=== PATIENT | female | born 1960 | race Caucasian/White ===

== ENCOUNTER → 2017-08-13 | Outpatient (CLI) | payer MEDICARE | LOC: COL.LAB 14:31 | DX: E03.9 Hypothyroidism, unspecified (principal); Z88.5 Allergy status to narcotic agent; Z88.8 Allergy status to other drugs, medicaments and biological substances ==

== ENCOUNTER → 2017-11-17 | Outpatient (CLI) | payer MEDICARE ==
[2017-11-17 17:47] LABS: URINE PROTEIN:CREAT RATIO 0.38 (0.00-0.14)
== END ==
LOC: COL.LAB 15:36
PROVIDERS: Family Medicine
DX: E11.9 Type 2 diabetes mellitus without complications (principal)

== ENCOUNTER → 2018-02-24 | Outpatient (CLI) | payer MEDICARE ==
[2018-02-24 16:29] LABS: BASO # 0.1 (0.0-0.2); BASO % 0.8 % (0.0-2.0); EOS # 0.3 (0.0-0.7); EOS % 2.9 % (0-4.0); GRAN # 7.3 (1.4-6.5); GRAN % 63.9 % (42.2-75.2); HEMATOCRIT 43.6 % (37.0-47.0); HEMOGLOBIN 14.2 g/dl (12.5-16.0); LYMPH # 2.8 (1.2-3.4); LYMPH % 24.5 % (20.0-51.0); MEAN CELL VOLUME 90 fl (80.0-100.0); MEAN CORPUSCULAR HEMOGLOBIN 29 pg (27.0-31.0); MEAN CORPUSCULAR HGB CONC 33 g/dl (33.0-37.0); MEAN PLATELET VOLUME 10.8 fl (7.4-10.4); MONO # 0.9 (0.1-0.6); MONO % 7.5 % (1.7-9.3); PLATELET COUNT 355 K/mm3 (130-400); RED BLOOD COUNT 4.84 M/mm3 (4.10-5.30); REDCELL DISTRIBUTION WIDTH-CV 13.3 % (11.5-14.5)
[2018-02-24 16:37] LABS: ALBUMIN 4.2 gm/dL (3.5-5.0); BILIRUBIN,TOTAL 0.5 mg/dL (0.0-1.0); CHOLESTEROL RISK RATIO 4.4; CREATININE, serum 0.62 mg/dL (0.52-1.25); POTASSIUM 3.8 mmol/L (3.4-5.0); TOTAL PROTEIN 7.7 gm/dL (6.4-8.2)
[2018-02-24 17:07] LABS: TSH w REFLEX 2.3 uIU/mL (0.465-4.680)
== END ==
LOC: COL.LAB 14:22
PROVIDERS: Family Medicine
DX: Z13.220 Encounter for screening for lipoid disorders (principal); R53.83 Other fatigue; I10 Essential (primary) hypertension

== ENCOUNTER 2019-07-15 10:29 | Day surgery (SDC) | payer MEDICARE, MEDICAID ==
[2019-07-15] VITALS (9 sets, daily range): BP systolic 130–158; BP diastolic 67–98; PULSE 63–116; TEMP 98
[~2019-07-15] VITALS: Ht 157.5 cm; Wt 120.0 kg
[2019-07-15] MEDS ORDERED: HYZAAR 25 MG-101 TAB PO (11:08)
[2019-07-15] MEDS ORDERED: LEVOXYL0.1 MG PO (11:08)
[2019-07-15] MEDS ORDERED: DITROPAN 5MG TAB5 MG PO (11:09)
[2019-07-15] MEDS ORDERED: NEURONTIN300 MG/CAP PO (11:10)
[2019-07-15] MEDS ORDERED: ALLEGRA 180MG180 MG PO (11:11)
[2019-07-15] MEDS ORDERED: LIPITOR20 MG PO (11:11)
[2019-07-15] MEDS ORDERED: PLETAL50 MG PO (11:12)
[2019-07-15] MEDS ORDERED: SYNJARDY 12.5-1 EACH PO (11:13)
[2019-07-15] MEDS ORDERED: FLONASEALLERGY NS (11:13)
[2019-07-15] MEDS ORDERED: MOBIC15 MG PO (11:14)
[2019-07-15] MEDS ORDERED: ASPIRIN E.C. 8181 MG PO (11:14)
[2019-07-15] MEDS ORDERED: SINGULAIR 110 MG/TAB PO (11:15)
[2019-07-15] MEDS ORDERED: LIORESAL 1010 MG/TAB PO (11:15)
[2019-07-15] MEDS ORDERED: MAG-OX 400400 MG/TAB PO (11:16)
[2019-07-15 11:34] LABS: HEMATOCRIT 44.6 % (37.0-47.0); HEMOGLOBIN 14.5 g/dl (12.5-16.0); MEAN CELL VOLUME 90 fl (80.0-100.0); MEAN CORPUSCULAR HEMOGLOBIN 29 pg (27.0-31.0); MEAN CORPUSCULAR HGB CONC 33 g/dl (33.0-37.0); MEAN PLATELET VOLUME 9.5 fl (7.4-10.4); PLATELET COUNT 316 K/mm3 (130-400); RED BLOOD COUNT 4.98 M/mm3 (4.10-5.30); REDCELL DISTRIBUTION WIDTH-CV 13.3 % (11.5-14.5)
[2019-07-15 11:45] LABS: CALCIUM 9.7 mg/dL (8.4-10.2); CREATININE, serum 0.47 (0.52-1.25); INR 0.9 (0.8-3.0); POTASSIUM 3.9 mmol/L (3.4-5.0); PROTHROMBIN TIME 10.5 SECONDS (9.7-12.8)
[2019-07-15 11:47] LABS: PARTIAL THROMBOPLASTIN TIME 32.2 SECONDS (26.0-37.0)
--- NOTE | 2019-07-15 13:19 | NUR ---
SEE MERGE FOR MEDICATION ADMINISTRATION TIMES AND INTRA/POST PROCEDURE SEDATION ASSESSMENT DOCUMENTATION. POSITIVE BARBEAU.
--- NOTE | 2019-07-15 14:20 | NUR ---
PT BACK FROM [facility], TR BAND TO RT WRIST WITH 13 ML AIR. PT AWAKE AND ALERT, NO COMPLAINTS. CMS INTACT. WCTM
--- NOTE | 2019-07-15 18:50 | NUR ---
Pt ready for discharge. site is covered with bandaid, and is free of bleeding or hematoma. cms is intact. Pt has been ambulatory in room with steady gait, has been able to eat, drink and vioid with no problem. Pt verbalized understanding of discharge instructions. saline lock dc'd with cath intact, dressing was applied. she was escorted to exit via wheelchair with friend.
== END 2019-07-15 19:39 | disposition home or self-care (01) ==
LOC: COL.CAR 10:29
PROVIDERS: Internal Medicine Interventional Cardiology
DX: R07.9 Chest pain, unspecified (principal); R94.39 Abnormal result of other cardiovascular function study; Z79.899 Other long term (current) drug therapy
CPT/HCPCS: C1769; C1887; J1644; J2250; J3010; Q9967

== ENCOUNTER 2021-03-18 19:36 | Inpatient (IN) | payer MEDICARE, MEDICAID ==
[~2021-03-18] VITALS: Ht 162.6 cm; Wt 100.0 kg
[~2021-03-18 19:36] MED LIST changes: -ASPIRIN 32325 MG/TA1 PO; -ROCEPHIN 2GM VIAL21 IV; -ROCEPHIN VIA1 G/VIAL IV
[2021-03-18] MEDS ORDERED: SYNJARDY 12.5-1 EACH PO (21:52)
[2021-03-18 22:37] LABS: BASO # 0.1 K/mm3 (0.0-0.2); BASO % 0.4 % (0.0-2.0); EOS # 0.1 K/mm3 (0.0-0.7); EOS % 0.9 % (0-4.0); GRAN # 7.7 K/mm3 (1.4-6.5); HEMATOCRIT 37.7 % (37.0-47.0); HEMOGLOBIN 12.7 g/dl (12.5-16.0); LYMPH # 2.4 K/mm3 (1.2-3.4); LYMPH % 20.4 % (20.0-51.0); MEAN CELL VOLUME 85 fl (80.0-100.0); MEAN CORPUSCULAR HEMOGLOBIN 29 pg (27.0-31.0); MEAN CORPUSCULAR HGB CONC 34 g/dl (33.0-37.0); MEAN PLATELET VOLUME 9.3 fl (7.4-10.4); MONO # 1.4 K/mm3 (0.1-0.6); PLATELET COUNT 372 K/mm3 (130-400); RED BLOOD COUNT 4.43 M/mm3 (4.10-5.30); REDCELL DISTRIBUTION WIDTH-CV 14.1 % (11.5-14.5)
[2021-03-18 22:54] LABS: ALBUMIN 3.1 gm/dL (3.4-4.8); CALCIUM 9.6 mg/dL (8.4-10.2); CREATININE, serum 0.7 mg/dL (0.57-1.11); TOTAL PROTEIN 6.9 gm/dL (6.2-8.1)
--- NOTE | 2021-03-18 23:11 | NUR ---
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 WILL THEN START A MAINTENANCE REGIMEN OF 1.25 GM Q12H. WILL FOLLOW CLOSELY PT AT HIGH RISK FOR NOT FOLLOWING POPULATION BASED KINETICS AND ACCUMULATION 2/2 ELEVATED BMI. WILL FOLLOW RENAL FUCNTION, MICRO, LEVELS, AND CARE PLAN FOR NEED TO ADJUST THERAPY. THANK YOU FOR THIS DOSING CONSULT!
[2021-03-18 23:21] VITALS: BP 108/42; PULSE 94; TEMP 100
[2021-03-19] VITALS (12 sets, daily range): BP systolic 99–144; BP diastolic 51–68; PULSE 75–96; TEMP 97.9–99.2
--- NOTE | 2021-03-19 01:16 | NUR ---
Patient arrived surgical floor room 327 around 1999. Patient A/Ox4. Patient reports moderate pain to her right knee. Right knee area slightly swollen and erythma noted. Patient able to bear weight and use bed-side commode with x1 assist. Oriented patient to the room. [place] box and ice water provided per patient request. Informed patient of NPO from midnight for possible surgery tomorrow. Patient verbalized understanding. PRN Tylenol given for pain. Scheduled antibiotic and IVF infusing per MAR. Call light in reach. Will continue to monitor.
[2021-03-19 04:17] LABS: COLLECTION METHOD CLEAN CATCH
[2021-03-19 04:31] LABS: BUDDING YEAST Present /hpf; PH 6 (5-8); SQUAMOUS EPITHELIAL 0-2 /hpf; URINE APPEARANCE Cloudy; URINE BACTERIA Many /hpf; URINE BILIRUBIN Negative (NEGATIVE); URINE BLOOD 1+ (NEGATIVE); URINE COLOR Yellow; URINE GLUCOSE 3+ (NEGATIVE); URINE KETONE Trace (NEGATIVE); URINE LEUKOCYTE ESTERASE 3+ (NEGATIVE); URINE NITRATE Positive (NEGATIVE); URINE PROTEIN(semi-quant) Negative (NEGATIVE); URINE UROBILINOGEN Negative (NEGATIVE)
--- NOTE | 2021-03-19 06:14 | NUR ---
Patient continues to have moderate to severe pain to right knee area over the night. PRN pain med given per JUL. NPO remained from midnight. Call light in reach. Will give report to day shift nurse.
[2021-03-19 06:48] LABS: BASO # 0.1 K/mm3 (0.0-0.2); BASO % 0.5 % (0.0-2.0); EOS # 0.2 K/mm3 (0.0-0.7); EOS % 1.9 % (0-4.0); GRAN # 5.9 K/mm3 (1.4-6.5); GRAN % 61.1 % (42.2-75.2); MEAN CELL VOLUME 87 fl (80.0-100.0); MEAN CORPUSCULAR HEMOGLOBIN 29 pg (27.0-31.0); MEAN CORPUSCULAR HGB CONC 33 g/dl (33.0-37.0); MEAN PLATELET VOLUME 9.8 fl (7.4-10.4); MONO # 1.5 K/mm3 (0.1-0.6); MONO % 15.2 % (1.7-9.3); PLATELET COUNT 322 K/mm3 (130-400); RED BLOOD COUNT 4.16 M/mm3 (4.10-5.30); REDCELL DISTRIBUTION WIDTH-CV 13.9 % (11.5-14.5)
[2021-03-19 06:52] LABS: HEMATOCRIT 36.3 % (37.0-47.0)
[2021-03-19 07:08] LABS: CREATININE, serum 0.58 mg/dL (0.57-1.11)
[2021-03-19 07:09] LABS: POTASSIUM 2.8 mmol/L (3.5-4.5)
--- NOTE | 2021-03-19 08:00 | NUR ---
NOTIFIED HOSPITALIST OF CRITICAL POTASSIUM OF 2.8, SEE NEW ORDERS.
--- NOTE | 2021-03-19 08:00 | NUR ---
PATIENT IS A&O. VSS. C/O PAIN IN RLE RATED AT 5-6 ON PAIN SCALE. GAVE PRN ULTRAM, TWO TABS WITH AM MEDS. NO C/O N/V. AM MEDS GIVEN WITH SIPS OF WATER. IV FLUIDS INFUSING VIA PUMP INTO LEFT WRIST IV. NPO FOR POSSIBLE SURGERY TODAY. RLE IS SWOLLEN AND TENDER TO TOUCH. POSITIVE PEDAL PULSES TO BLE. SCD'S TO BLE. HEAD TO TOE ASSESSMENT COMPLETE. NO OTHER NEEDS AT THIS TIME. CALL LIGHT IN REACH.
--- NOTE | 2021-03-19 10:12 | NUR ---
Initial visist; Patient thanked [employer] for looking in on her and offering God's blessings and to keep her in [employer]'s prayers.
--- NOTE | 2021-03-19 11:51 | NUR ---
SW met with patient to discuss discharge plan. Patient reports she and her , Hetal Grimes ([phone]) live in [facility] where patient states she was fully independent; however she does have a walker and a stair lift that her used if she needs them. She is scheduled for surgery this afternoon but she states she has had this before and did not require any rehab or home health. There are no oxygen needs. PCP is Dr. Arcenio Crowder and she uses [facility] in [facility]. Patient reports no difficulty affording her medications and the pharmacy delivers the meds to her home. Patient states she does not have an MPOA and doesn't believe it is necessary. SW offered to complete one if she changes her mind. SW will continue to follow for discharge needs. D/C Plan: Home pending medical procedure
--- NOTE | 2021-03-19 14:10 | NUR ---
PATIENT GOING DOWN TO SURGERY VIA BED. CONSENT ON CHART. PRE-OPS GIVEN. PATIENT OFF FLOOR.
--- NOTE | 2021-03-19 17:50 | NUR ---
PATIENT SATS IN THE UPPER 80'S ON RA. PATIENT STATING SHE "JUST FEELS OUT OF IT". APPLIED OXYMASK, NC WAS MAKING HER NOSE ITCH LIKE CRAZY, AT 3L AND SATS NOW IN MID 90'S. PATIENT RESTING UP IN BED. VSS. NO DRAINAGE NOTED IN HEMOVAC. RLE DRESSING IS CD&I WITH ACEWRAP AND IS ELEVATED ON PILLOW. CALL LIGHT IN REACH.
--- NOTE | 2021-03-19 20:30 | NUR ---
PT UNABLE TO VOID ON BEDPAN. ASSISTED TO BSC, HAS LARGE VOID AND BACK TO BED. RT LEG WITH DRSG AND FAITH WRAP INTACT. HEMOVAC COMPRESSED. IS ALERT AND ORIENTED X4 NOW. OXYGEN OFF AND SAO2 96%. IV SITE TO LEFT WRIST, FLUIDS INFUSING WITHOUT REDNESS OR SWELLING.
--- NOTE | 2021-03-19 21:47 | NUR ---
PT TAKES HS MEDS INCLUDING TRAMADOL 100MG PO. VANCOMYCIN INFUSING WITHOUT PROBLEM.
--- NOTE | 2021-03-20 03:30 | NUR ---
ASSISTED TO BSC, VOIDS AND BACK TO BED.
[2021-03-20 03:52] VITALS: BP 135/68; PULSE 79; TEMP 98
--- NOTE | 2021-03-20 04:50 | NUR ---
MEDICATED WITH SCHEDULED AM MED AND TRAMADOL 50MG PO AT THIS TIME. PT AWAKE, ALERT AND ORIENTED.
[2021-03-20 08:08] VITALS: BP 108/57; PULSE 72; TEMP 97.8
--- NOTE | 2021-03-20 11:27 | NUR ---
PT RESTING IN BED AFTER PICC LINE PLACEMENT. AM MEDS GIVEN ORDERED. DRESSING TO RIGHT KNEE CDI WITH HEMOVAC INPLACE.
[2021-03-20 12:20] VITALS: BP 127/51; PULSE 81; TEMP 97.9
[2021-03-20 16:22] VITALS: BP 146/63; PULSE 81; TEMP 98
[2021-03-20 20:03] VITALS: BP 120/56; PULSE 90; TEMP 98.1
--- NOTE | 2021-03-20 21:10 | NUR ---
PT IN BED. IS ALERT AND ORIENTED X4. HAS LEFT PICC LINE INTACT. TAKES HS MEDS INCLUDING TRAMADOL 50MG PO FOR RT KNEE PAIN. HAS HEMOVAC DRAIN WITH SCANT DRAINAGE. DRSG TO RT LEG D/I. AMBULATING WITH WALKER AND SBA.
[2021-03-20 23:38] VITALS: BP 117/65; PULSE 91; TEMP 98.3
[2021-03-21 03:39] VITALS: BP 109/51; PULSE 80; TEMP 97.8
[2021-03-21 05:38] LABS: BASO % 0.3 % (0.0-2.0); EOS % 0.3 % (0-4.0); GRAN # 6.8 K/mm3 (1.4-6.5); GRAN % 69.3 % (42.2-75.2); HEMOGLOBIN 10.7 g/dl (12.5-16.0); LYMPH # 1.9 K/mm3 (1.2-3.4); LYMPH % 19.3 % (20.0-51.0); MEAN CELL VOLUME 89 fl (80.0-100.0); MEAN CORPUSCULAR HEMOGLOBIN 29 pg (27.0-31.0); MEAN CORPUSCULAR HGB CONC 33 g/dl (33.0-37.0); MEAN PLATELET VOLUME 9.3 fl (7.4-10.4); MONO % 10.5 % (1.7-9.3); PLATELET COUNT 330 K/mm3 (130-400); RED BLOOD COUNT 3.66 M/mm3 (4.10-5.30); REDCELL DISTRIBUTION WIDTH-CV 13.6 % (11.5-14.5)
[2021-03-21 05:42] LABS: HEMATOCRIT 32.6 % (37.0-47.0)
[2021-03-21 06:03] LABS: ALBUMIN 2.5 gm/dL (3.4-4.8); BILIRUBIN,TOTAL 0.4 mg/dL (0.2-1.2); CREATININE, serum 0.57 mg/dL (0.57-1.11); MAGNESIUM 1.8 mg/dL (1.6-2.6); POTASSIUM 3.8 mmol/L (3.5-4.5); TOTAL PROTEIN 5.7 gm/dL (6.2-8.1)
[2021-03-21 07:45] VITALS: BP 122/62; PULSE 86; TEMP 98.2
[2021-03-21 12:55] VITALS: BP 118/72; PULSE 89; TEMP 97.6
[2021-03-21 15:53] VITALS: BP 120/69; PULSE 89; TEMP 97.9
[2021-03-21 19:50] VITALS: BP 125/63; PULSE 89; TEMP 98.6
--- NOTE | 2021-03-21 21:00 | NUR ---
PATIENT IS ALERT AND ORIENTED X4. UP TO BATHROOM WITH WALKER. STEADY GAIT. PATIENT IS INDEPENDENT IN ROOM. PATIENT STATES THAT HER URINE WAS BLOOD TINGED EARLIER BUT BACK TO YELLOW NOW. PATIENT HAS DRESSING TO RIGHT KNEE, GAUZE AND TEGADERM, SLIGHTLY JOSÉ LUIS. PATIENT HAS 2 LAP SITES TO RIGHT KNEE COVERED WITH BANDAID. PATIENT HAS PICC TO LEFT UPPER ARM, INFUSING WELL. PATIENT PN POTASSIUM PROTOCOL AND GENERAL DIET. PATIENT POTENTIAL DISCHARGE TOMORROW WITH IV ANTIBIOTICS. PATIENT DENIES PAIN OR FURTHER NEEDS AT THIS TIME. CALL LIGHT WITHIN REACH. HEAD TO TOE ASSESSMENT COMPLETE.
[2021-03-22 01:17] VITALS: BP 128/61; PULSE 79; TEMP 97.6
[2021-03-22 03:42] VITALS: BP 130/63; PULSE 69; TEMP 98.6
--- NOTE | 2021-03-22 06:13 | NUR ---
PATIENT DID WELL THROUGHOUT NIGHT. SLEPT ON AND OFF THROUGHOUT NIGHT. UP TO BATHROOM THROUGHOUT NIGHT.PATIENT DENIES PAIN OR FURTHER NEEDS AT THIS TIME. CALL LIGHT WITHIN REACH. WILL REPORT TO DAYSHIFT.
[2021-03-22 07:14] LABS: CALCIUM 8.9 mg/dL (8.4-10.2); CREATININE, serum 0.56 mg/dL (0.57-1.11); MAGNESIUM 1.9 mg/dL (1.6-2.6); POTASSIUM 3.6 mmol/L (3.5-4.5)
[2021-03-22 07:15] LABS: BASO # 0.1 K/mm3 (0.0-0.2); BASO % 0.6 % (0.0-2.0); EOS # 0.3 K/mm3 (0.0-0.7); EOS % 2.9 % (0-4.0); GRAN # 4.9 K/mm3 (1.4-6.5); GRAN % 55.6 % (42.2-75.2); LYMPH # 2.4 K/mm3 (1.2-3.4); LYMPH % 26.6 % (20.0-51.0); MEAN CELL VOLUME 87 fl (80.0-100.0); MEAN CORPUSCULAR HEMOGLOBIN 29 pg (27.0-31.0); MEAN CORPUSCULAR HGB CONC 33 g/dl (33.0-37.0); MEAN PLATELET VOLUME 9.6 fl (7.4-10.4); MONO # 1.2 K/mm3 (0.1-0.6); PLATELET COUNT 382 K/mm3 (130-400); RED BLOOD COUNT 3.77 M/mm3 (4.10-5.30); REDCELL DISTRIBUTION WIDTH-CV 13.7 % (11.5-14.5)
[2021-03-22 07:18] LABS: HEMATOCRIT 32.9 % (37.0-47.0)
[2021-03-22 07:25] VITALS: BP 119/67; PULSE 92; TEMP 98.6
[2021-03-22] MEDS ORDERED: ASPIRIN 32325 MG/TA1 PO (09:16)
[2021-03-22] MEDS ORDERED: ROCEPHIN VIA1 G/VIAL IV (09:24)
[2021-03-22] MEDS ORDERED: ROCEPHIN 2GM VIAL21 IV (09:31)
[2021-03-22 12:47] VITALS: BP 120/64; PULSE 92; TEMP 98.2
--- NOTE | 2021-03-22 15:30 | NUR ---
ROSA M MURGUIA AT BEDSIDE DISCUSSING HOME ANTIBIOTICS. PATIENT WAITING ON RIDE BUT WILL DISCHARGE HOME WITH TISHA
--- NOTE | 2021-03-22 16:10 | NUR ---
PATIENT DISCHARGING HOME WITH HH. PATIENT GIVEN DISCHARGE INSTRUCTIONS, ROCEPHIN SCRIPTS & DISCUSSED F/U APTS. ANSWERED QUESTIONS/CONCERNS. PATIENT DISCHARGING WITH LEATHA PICC LINE INPLACE. PATIENT IS DRESSED, PACKED AND DISCHARGED.
== END 2021-03-22 16:10 | disposition home health service (06) | DRG 486 ==
LOC: SURG 19:36
PROVIDERS: Internal Medicine; Orthopaedic Surgery; Physician Assistant; Student in an Organized Health Care Education/Training Program; ADMIT Internal Medicine
PROC: 0SBC4ZZ Excision of Right Knee Joint, Percutaneous Endoscopic Approach (ICD-10-PCS; 2021-03-19)
PROC: 3E1U48Z Irrigation of Joints using Irrigating Substance, Percutaneous Endoscopic Approach (ICD-10-PCS; 2021-03-19)
PROC: 0SBC4ZZ Excision of Right Knee Joint, Percutaneous Endoscopic Approach (ICD-10-PCS; principal; 2021-03-19 14:45)
PROC: 02HV33Z Insertion of Infusion Device into Superior Vena Cava, Percutaneous Approach (ICD-10-PCS; 2021-03-20)
DX: M00.9 Pyogenic arthritis, unspecified (principal); N39.0 Urinary tract infection, site not specified; M17.0 Bilateral primary osteoarthritis of knee; I10 Essential (primary) hypertension; E78.5 Hyperlipidemia, unspecified; E03.9 Hypothyroidism, unspecified; E11.42 Type 2 diabetes mellitus with diabetic polyneuropathy; G89.29 Other chronic pain; E87.6 Hypokalemia; I95.9 Hypotension, unspecified; Z79.82 Long term (current) use of aspirin; Z88.6 Allergy status to analgesic agent
CPT/HCPCS: 99223-AI; 99232-AI; 99233-AI; 99239; A9284; C1751; C1892; J0171; J0696; J1100; J1170; J2405; J2704; J3010; J3370; J3475; J7030; J7050

== ENCOUNTER → 2021-03-18 | Outpatient (CLI) | payer MEDICARE, MEDICAID ==
[~2021-03-18] MED LIST: ALLEGRA 180MG180 MG PO; ASPIRIN 32325 MG/TA1 PO; ASPIRIN E.C. 8181 MG PO; DITROPAN 5MG TAB5 MG PO; FLONASEALLERGY NS; HYZAAR 25 MG-101 TAB PO; LEVOXYL0.1 MG PO; LIORESAL 1010 MG/TAB PO; LIPITOR20 MG PO; MAG-OX 400400 MG/TAB PO; MOBIC15 MG PO; NEURONTIN300 MG/CAP PO; PLETAL50 MG PO; ROCEPHIN 2GM VIAL21 IV; ROCEPHIN VIA1 G/VIAL IV; SINGULAIR 110 MG/TAB PO; SYNJARDY 12.5-1 EACH PO
[2021-03-18 17:05] LABS: SYNOVIAL FLUID COLOR YELLOW
[2021-03-18 17:06] LABS: SYNOVIAL FLUID APPEARANCE TURBID; SYNOVIAL FLUID WBC 68060 /mm3 (200-600)
[2021-03-18 17:07] LABS: SYNOVIAL FL. MONONUCLEAR 5.5 % (0-75); SYNOVIAL FLUID RBC 6000 /mm3 (0-0)
== END | disposition still patient (30) ==
LOC: ZCOL.LAB 08:00 → MC.RAD 14:45
PROVIDERS: Family Medicine
DX: M25.561 Pain in right knee (principal)